=== PATIENT | male | born 1980 | race Caucasian/White ===

== ENCOUNTER 2019-08-06 13:08 | Emergency (ER) | payer OTHER ==
[2019-08-07 10:56] LABS: SARS-CoV-2 MS2 Positive; SARS-CoV-2 N Gene Negative; SARS-CoV-2 S Gene Negative; SARS-CoV-2 orf1ab Negative
== END 2019-08-06 14:32 | disposition home or self-care (01) ==
LOC: ERS 13:08
DX: R53.83 Other fatigue (principal); Z20.828 Contact with and (suspected) exposure to other viral communicable diseases
CPT/HCPCS: 87635; 99283; U0003

== ENCOUNTER 2019-08-07 12:08 | Outpatient (CLI) | payer OTHER ==
[~2019-08-07 12:08] MED LIST: Magnevist 469MG/ML 20 ML VIAL ONE
--- NOTE | 2019-08-07 14:17 | MRI ---
MRI BRAIN WITH AND WITHOUT CONTRAST: 08/07/19 INDICATIONS: Headache. Blurred vision. FINDINGS: The ventricles have normal size and position. No evidence of restricted diffusion. No mass or edema. No evidence of white matter abnormality. No abnormal enhancement. The intracranial internal carotid arteries and cerebral arteries show expected flow voids. The paranasal sinuses and mastoids appear clear. Orbits are unremarkable. IMPRESSION: Unremarkable MRI of brain. POS: [facility]
== END 2019-08-07 12:09 | disposition home or self-care (01) ==
LOC: BICMRI 12:08
PROVIDERS: ATTEND Surgery
DX: R51 Headache (principal); H53.8 Other visual disturbances; R20.8 Other disturbances of skin sensation
CPT/HCPCS: 70553; A9579

== ENCOUNTER 2019-08-12 14:15 | Outpatient (CLI) | payer OTHER ==
[2019-08-12] MEDS ORDERED: Iopamidol-370 76% 500 ML 1 ML ONE (15:43)
--- NOTE | 2019-08-12 19:44 | CT ---
CTA HEAD WITH AND WITHOUT CONTRAST CTA NECK WITH AND WITHOUT CONTRAST: Technique: Axial tomograms were obtained the head pre and post IV contrast. Post contrast images were obtained following angio protocol with multiplanar reconstruction and 3D post processing. Indications: Headache, blurred vision. FINDINGS: CT HEAD WITHOUT CONTRAST: No evidence of intracranial mass or hemorrhage. No infarct. No acute finding. CTA HEAD WITH CONTRAST: Intracranial internal carotid arteries appear patent and symmetric. Anterior cerebral arteries and middle cerebral arteries appear patent and symmetric. Basilar artery is patent. The posterior cerebral arteries appear patent and symmetric. IMPRESSION: Unremarkable CTA of head. CTA NECK: Technique: Axial tomograms were obtained and multiplanar reconstruction and 3D post processing provid ed. Indications: Blurred vision, headache. FINDINGS: No evidence of stenosis or atherosclerotic changes at the origin of the arch vessels. Common carotid arteries are patent and symmetric. Both bulbs are unremarkable. No atherosclerotic change. No evidence of stenosis. The internal carotid arteries are patent and symmetric. Vertebral arteries are patent and symmetric with no evidence of stenosis. Soft tissues: No soft tissue abnormality. Paranasal sinuses appear clear. IMPRESSION: Unremarkable CTA neck. POS: [facility]
== END 2019-08-12 14:16 | disposition home or self-care (01) ==
LOC: BICCT 14:15
PROVIDERS: ATTEND Surgery
DX: R51 Headache (principal); H53.8 Other visual disturbances; R44.9 Unspecified symptoms and signs involving general sensations and perceptions
CPT/HCPCS: 70496; 70498; Q9967